=== PATIENT | female | born 1995 ===

== ENCOUNTER 2017-10-29 15:56 | Emergency (ER) | payer OTHER ==
[~2017-10-29] VITALS: Ht 167.6 cm; Wt 64.1 kg
[2017-10-29 16:05] VITALS: TEMP 36.9; Ht 167.6 cm; Wt 64.1 kg
[2017-10-29] MEDS ORDERED: IBUPROFEN 600 MG TAB PO STA (16:22)
[2017-10-29] MEDS ORDERED: ACETAMINOPHEN 500 MG TAB PO STA (16:22)
[2017-10-29] MEDS ORDERED: SPIR50TA2 PO (16:29)
[2017-10-29] MEDS ORDERED: CYCL10TA6 PO (16:29)
[2017-10-29] MEDS ORDERED: DIAZEPAM 5MG TAB PO ONE (16:30)
--- NOTE | 2017-10-29 16:54 | EMERGENCY ROOM VISIT NOTE ---
History Report prepared by Mira: Mark Reyes Under the Supervision of: Dr. Tab Reyes M.D. First contact with patient: 16:09 Chief Complaint: BACK PAIN Stated Complaint: PAIN AND MUSCLE SPASMS IN BACK, ARMS AND KNEES History of Present Illness The patient is a 22 year old [place] female with no past medical history who presents to the ED with a cc of intermittent, severe upper back and upper arm spasms beginning 8 hours ago. Pt tried taking three Flexeril, but it did not help. Positive history of these symptoms - last episode was three months ago, pain with movement, occasional alcohol use, occasional marijuana use. Negative pain when she is sitting still, recent strain, tobacco use, recent surgeries. Pt last used marijuana yesterday. LNMP was three weeks ago. Source of History: patient Onset: 8 hours ago Position: arm (upper, bilateral), back (upper) Symptom Intensity: severe Quality: cramping Timing: intermittent Modifying Factors (Worsening): movement Modifying Factors (Relieving): other (sitting still) Note: Denies: recent strain or surgeries Review of Systems See HPI for pertinent positives and negatives. A total of ten systems were reviewed and were otherwise negative. Past Medical & Surgical Medical Problems: (1) No Known Active Medical Problems Family History Patient reports no known family medical history. Social History Smoking Status: Never Smoker Housing Status: lives with roommate Occupation Status: [employer] student Current/Historical Medications Scheduled Tramadol Hcl (Ultram), 50 MG PO Q8H Scheduled PRN Cyclobenzaprine Hcl (Flexeril), 10 MG PO TID PRN for Muscle Spasms Spironolactone (Aldactone), 50 MG PO DAILY PRN for PRN Allergies Coded Allergies: Cashew (Unverified Allergy, Unknown, VOMITING, 10/29/17) Pecan (Unverified Allergy, Unknown, VOMITING, 10/29/17) Pistachio (Unverified Allergy, Unknown, VOMITING, 10/29/17) Physical Exam Vital Signs Date Time Temp Pulse Resp B/P (MAP) Pulse Ox O2 Delivery O2 Flow Rate FiO2 10/29/17 19:13 100 Room Air 10/29/17 19:13 72 20 120/68 100 Room Air 10/29/17 18:07 107 10/29/17 17:45 89 17 133/96 89 10/29/17 17:21 88 20 143/103 100 Room Air 10/29/17 16:05 36.9 113 18 148/98 98 Room Air Physical Exam GENERAL: Awake, alert, well-appearing, NAD HENT: Normocephalic, atraumatic. EYES: Normal conjunctiva. Sclera non-icteric. NECK: Supple. No nuchal rigidity. FROM. RESPIRATORY: CTAB, no rhonchi, wheezing, crackles CARDIAC: RRR, no MRG ABDOMEN: Soft, NTND, BS+ MSK: No chest wall TTP, no LE edema. Bilateral trapezius discomfort. NEURO: GCS 15, CN 2-12 intact, moves all 4s on command. No saddle anesthesia. 5/ 5 UE strength. No LE deficits. SKIN: No rash or jaundice noted. Medical Decision & Procedures ER Provider Diagnostic Interpretation: Radiology results as stated below per my review and radiologist interpretation CT ANGIOGRAPHY OF THE CHEST, PULMONARY EMBOLUS PROTOCOL CLINICAL HISTORY: Severe upper back pain and upper arm spasms. COMPARISON STUDY: No previous studies for comparison. TECHNIQUE: Following IV administration of 78 mL of Optiray-320, helical axial images of the chest were obtained utilizing the pulmonary embolus protocol. Maximal intensity projections and sagittal and coronal reformats were viewed on an independent 3D workstation. IV contrast was administered without complication. A dose lowering technique was utilized adhering to the principles of ALARA. CT DOSE: 172.26 mGy.cm FINDINGS: No pulmonary emboli are identified although the segmental and subsegmental pulmonary arteries within the lower lobes are suboptimally assessed due to respiratory motion. Size of the heart is normal. There is no thoracic aortic dissection. No enlarged axillary, mediastinal or hilar lymph nodes are present. Mild anterior mediastinal soft tissue likely reflects residual thymus. Central airways are patent. There is no consolidation to suggest pneumonia. Mild subpleural opacities favor atelectasis. There is no pneumomediastinum. Bony thorax and upper abdomen are unremarkable. IMPRESSION: 1. No pulmonary emboli identified although segmental and subsegmental pulmonary arteries within the lower lobes suboptimally assessed due to respiratory motion. 2. No acute intrathoracic findings. Electronically signed by: Suresh Bay M.D. 10/29/2017 7:44 PM Dictated Date/Time: 10/29/2017 7:37 PM Laboratory Results 10/29/17 17:25 Red Blood Count 5.01, Mean Corpuscular Volume 91.2, Mean Corpuscular Hemoglobin 31.1, Mean Corpuscular Hemoglobin Concent 34.1, Mean Platelet Volume 10.1, Neutrophils (%) (Auto) 83.0, Lymphocytes (%) (Auto) 11.6, Monocytes (%) (Auto) 3.9, Eosinophils (%) (Auto) 1.1, Basophils (%) (Auto) 0.1, Neutrophils # (Auto) 8.60, Lymphocytes # (Auto) 1.20, Monocytes # (Auto) 0.40, Eosinophils # (Auto) 0.11, Basophils # (Auto) 0.01 10/29/17 17:25 Test 10/29/17 16:42 10/29/17 17:25 Urine Color YELLOW Urine Appearance CLEAR (CLEAR) Urine pH >= 9.0 (4.5-7.5) Urine Specific [place] 1.018 (1.000-1.030) Urine Protein NEG (NEG) Urine Glucose (UA) NEG (NEG) Urine Ketones NEG (NEG) Urine Occult Blood NEG (NEG) Urine Nitrite NEG (NEG) Urine Bilirubin NEG (NEG) Urine Urobilinogen NEG (NEG) Urine Leukocyte Esterase NEG (NEG) Urine WBC (Auto) 1-5 /hpf (0-5) Urine RBC (Auto) 0-4 /hpf (0-4) Urine Hyaline Casts (Auto) 1-5 /lpf (0-5) Urine Epithelial Cells (Auto) >30 /lpf (0-5) Urine Bacteria (Auto) NEG (NEG) Urine Test NEG (NEG) White Blood Count 10.35 K/uL (4.8-10.8) Red Blood Count 5.01 M/uL (4.2-5.4) Hemoglobin 15.6 g/dL (12.0-16.0) Hematocrit 45.7 % (37-47) Mean Corpuscular Volume 91.2 fL (80-100) Mean Corpuscular Hemoglobin 31.1 pg (25-34) Mean Corpuscular Hemoglobin Concent 34.1 g/dl (32-36) Platelet Count 251 K/uL (130-400) Mean Platelet Volume 10.1 fL (7.4-10.4) Neutrophils (%) (Auto) 83.0 % Lymphocytes (%) (Auto) 11.6 % Monocytes (%) (Auto) 3.9 % Eosinophils (%) (Auto) 1.1 % Basophils (%) (Auto) 0.1 % Neutrophils # (Auto) 8.60 K/uL (1.4-6.5) Lymphocytes # (Auto) 1.20 K/uL (1.2-3.4) Monocytes # (Auto) 0.40 K/uL (0.11-0.59) Eosinophils # (Auto) 0.11 K/uL (0-0.5) Basophils # (Auto) 0.01 K/uL (0-0.2) RDW Standard Deviation 43.1 fL (36.4-46.3) RDW Coefficient of Variation 12.9 % (11.5-14.5) Immature Granulocyte % (Auto) 0.3 % Immature Granulocyte # (Auto) 0.03 K/uL (0.00-0.02) Prothrombin Time 10.6 SECONDS (9.0-12.0) Prothromb Time International Ratio 1.0 (0.9-1.1) Activated Partial Thromboplast Time 29.4 SECONDS (21.0-31.0) Partial Thromboplastin Ratio 1.1 Anion Gap 6.0 mmol/L (3-11) Est Creatinine Clear Calc Drug Dose 86.7 ml/min Estimated GFR () 98.0 Estimated GFR (Non- 84.5 BUN/Creatinine Ratio 12.1 (10-20) Calcium Level 9.3 mg/dl (8.5-10.1) Phosphorus Level 3.2 mg/dl (2.5-4.9) Magnesium Level 2.1 mg/dl (1.8-2.4) Total Bilirubin 0.6 mg/dl (0.2-1) Direct Bilirubin 0.2 mg/dl (0-0.2) Aspartate Amino Transf (AST/SGOT) 15 U/L (15-37) Alanine Aminotransferase (ALT/SGPT) 23 U/L (12-78) Alkaline Phosphatase 71 U/L (45-117) Troponin I < 0.015 ng/ml (0-0.045) Total Protein 7.7 gm/dl (6.4-8.2) Albumin 4.1 gm/dl (3.4-5.0) Lipase 79 U/L (73-393) Human Chorionic Gonadotropin, Qual NEG (NEG) Laboratory results reviewed by me Medications Administered Medications (Trade) Dose Ordered Sig/Tom Route Start Time Stop Time Status Last Admin Dose Admin Diazepam (Valium Tab) 5 mg NOW ONCE PO 10/29/17 16:30 10/29/17 16:31 DC 10/29/17 16:40 5 MG Ibuprofen (Motrin Tab) 600 mg ONE STAT PO 10/29/17 16:22 10/29/17 16:24 DC 10/29/17 16:40 600 MG Acetaminophen (Tylenol Tab) 1,000 mg NOW STAT PO 10/29/17 16:22 10/29/17 16:24 DC 10/29/17 16:40 1,000 MG Hydromorphone HCl (Dilaudid Inj) 1 mg ONE STAT IM 10/29/17 17:30 10/29/17 17:31 DC 10/29/17 17:39 1 MG Dexamethasone Sodium Phosphate (Dexamethasone Inj Pf) 10 mg NOW ONCE IM 10/29/17 17:30 10/29/17 17:31 DC 10/29/17 17:38 10 MG ECG Indication: back/shoulder pain Rate (beats per minute): 95 Rhythm: normal sinus Findings: other (Normal interval, normal axis, no STS changes or TWI) ED Course 1617: The patient was evaluated in room C08. A complete history and physical exam was performed. 1947: I reevaluated the patient. Discussed results and discharge instructions: she verbalized understanding and agreement. The patient is ready for discharge. Medical Decision The patient is a 22 year old [place] female with no past medical history who presents to the ED with a cc of intermittent, severe upper back and upper arm spasms beginning 8 hours ago. Differential diagnosis: Etiologies such as musculoskeletal, disc herniation, fracture, aortic disease, metastatic disease, cord compression, discitis, infection, renal colic, gastrointestinal, acute exacerbation of chronic back pain, sciatica, cauda equina, as well as others were entertained. Patient was seen and evaluated the bedside. Patient does complain of some severe upper back and upper arm pain that she describes as spasm-like. Patient denies any recent change in activity or exercise. Patient did recently returned from [place] after being on winter break issues at [employer]. Patient initially was given medications that she didn't have any other high risk red flag features with regard to her back pain. Patient was having persistent symptoms the patient blood work completed, EKG, troponin, and CT PE. Patient's CT PE although somewhat limited secondary to motion artifact was negative. Patient's blood work was fairly unremarkable. Patient normal white blood cell count. H&H was within normal limits. Patient had normal kidney function. Patient had negative troponin. Upon reassessment the patient' s pain was mildly improved. Patient was deemed suitable for outpatient follow- up and treatment. Patient was given strict follow-up instructions and return precautions. Patient agreeable plan of care. Patient was given strict follow-up , discharge, and return precautions. All questions were answered. Patient was deemed suitable for outpatient follow-up at this time. Patient agreed with the plan of care and was safely discharged home. Medication Reconcilliation Current Medication List: was personally reviewed by me Blood Pressure Screening Patient's blood pressure: Normal blood pressure Blood pressure disposition: Did not require urgent referral Impression Primary Impression: Muscle spasm Scribe Attestation The scribe's documentation has been prepared under my direction and personally reviewed by me in its entirety. I confirm that the note above accurately reflects all work, treatment, procedures, and medical decision making performed by me. Departure Information Dispostion Home / Self-Care Prescriptions Tramadol Hcl (ULTRAM) 50 Mg Tab 50 MG PO Q8H, #15 TAB PRN PAIN Prov: Tab Reyes M.D. 10/29/17 Referrals No Doctor, Assigned (PCP) Forms HOME CARE DOCUMENTATION FORM, IMPORTANT VISIT INFORMATION Patient Instructions ED Spasm Esophageal, My [facility] Additional Instructions Please return to the emergency department if you have worsening or recurrent symptoms not amenable to at-home treatment. Please call for a follow-up appointment with her primary care physician. Please take your medications as prescribed. If you have other concerns and/or complaints please feel free to also call your primary care physician's office or return the ED for further evaluation, management, and treatment. You received narcotic or benzodiazepene medication while in the emergency room today. This is an addictive medication that may cause drowziness as well as constipation. Do not drive, operate heavy machinery, or drink alcohol under the influence of this medication. Take your medications as prescribed. If taking an antibiotic consider taking a probiotic and/or eating yogurt, but at the least, please take with food as it can cause upset stomach. If culture results are not available at discharge, if they are positive for concern of infection, you will be informed of the results as soon as they are available. If you were seen between 11pm and 7AM all radiology reads will be re-read by our in house staff. If any major discrepancies are discovered, you will be notified. You have been examined and treated today on an emergency basis only. This is not a substitute for, or an effort to provide, complete comprehensive medical care. It is impossible to recognize and treat all injuries or illnesses in a single emergency department visit. It is therefore important that you follow up closely with [facility], your PCP, and/or your specialist(s). Call as soon as possible for an appointment. Thank you for your time and consideration. I look forward to speaking with you again soon. Please don't hesitate to call us if you have any questions.
[2017-10-29] MEDS ORDERED: DEXAMETHASONE **PF** INJ 10 MG/ML VIAL IM ONE (17:30)
[2017-10-29] MEDS ORDERED: HYDROmorphone INJ 1 MG/ML SYR IM STA (17:30)
[2017-10-29] MEDS ORDERED: ONDANSETRON INJ 2 MG/ML 2 ML VIAL IV STA (18:27)
[2017-10-29] MEDS ORDERED: OPTIRAY 320 IV PRN (18:45)
[2017-10-29 18:46] LABS: BASO % 0.1 %; BASO ABS # 0.01 K/uL (0-0.2); EOS % 1.1 %; EOS ABS # 0.11 K/uL (0-0.5); HEMATOCRIT 45.7 % (37-47); HEMOGLOBIN 15.6 g/dL (12.0-16.0); IG# 0.03 K/uL (0.00-0.02); LYMPH % 11.6 %; MEAN CELL VOLUME 91.2 fL (80-100); MEAN CORPUSCULAR HEMOGLOBIN 31.1 pg (25-34); MEAN CORPUSCULAR HGB CONC 34.1 g/dl (32-36); MEAN PLATELET VOLUME 10.1 fL (7.4-10.4); MONO % 3.9 %; PLATELET COUNT 251 K/uL (130-400); PTT PATIENT 29.4 SECONDS (21.0-31.0); RED CELL DISTRIBUTION WIDTH CV 12.9 % (11.5-14.5); RED CELL DISTRIBUTION WIDTH SD 43.1 fL (36.4-46.3); WHITE BLOOD COUNT 10.35 K/uL (4.8-10.8)
[2017-10-29 18:56] LABS: ALBUMIN 4.1 gm/dl (3.4-5.0); ALT/SGPT 23 U/L (12-78); AST/SGOT 15 U/L (15-37); BLOOD UREA NITROGEN 12 mg/dl (7-18); CALCIUM 9.3 mg/dl (8.5-10.1); CARBON DIOXIDE 28 mmol/L (21-32); CREATININE 0.96 mg/dl (0.60-1.20); GLUCOSE 93 mg/dl (70-99); LIPASE 79 U/L (73-393); POTASSIUM 3.7 mmol/L (3.5-5.1); SODIUM 136 mmol/L (136-145)
[2017-10-29 19:04] LABS: ALKALINE PHOSPHATASE 71 U/L (45-117); PHOSPHORUS 3.2 mg/dl (2.5-4.9); TOTAL PROTEIN 7.7 gm/dl (6.4-8.2)
[2017-10-29 19:13] VITALS: O2SAT 100
--- NOTE | 2017-10-29 19:45 | DIAGNOSTIC IMAGING REPORT ---
CT ANGIOGRAPHY OF THE CHEST, PULMONARY EMBOLUS PROTOCOL CLINICAL HISTORY: Severe upper back pain and upper arm spasms. COMPARISON STUDY: No previous studies for comparison. TECHNIQUE: Following IV administration of 78 mL of Optiray-320, helical axial images of the chest were obtained utilizing the pulmonary embolus protocol. Maximal intensity projections and sagittal and coronal reformats were viewed on an independent 3D workstation. IV contrast was administered without complication. A dose lowering technique was utilized adhering to the principles of ALARA. CT DOSE: 172.26 mGy.cm FINDINGS: No pulmonary emboli are identified although the segmental and subsegmental pulmonary arteries within the lower lobes are suboptimally assessed due to respiratory motion. Size of the heart is normal. There is no thoracic aortic dissection. No enlarged axillary, mediastinal or hilar lymph nodes are present. Mild anterior mediastinal soft tissue likely reflects residual thymus. Central airways are patent. There is no consolidation to suggest pneumonia. Mild subpleural opacities favor atelectasis. There is no pneumomediastinum. Bony thorax and upper abdomen are unremarkable. IMPRESSION: 1. No pulmonary emboli identified although segmental and subsegmental pulmonary arteries within the lower lobes suboptimally assessed due to respiratory motion. 2. No acute intrathoracic findings. Electronically signed by: Suresh Bay M.D. 10/29/2017 7:44 PM Dictated Date/Time: 10/29/2017 7:37 PM
[2017-10-29] MEDS ORDERED: TRAM-453 PO (20:00)
[2017-10-29] MEDS ORDERED: TRAMADOL HCL 50 MG HOME PACK PO ONE (20:15)
[2017-10-29 20:43] VITALS: BP 112/72; PULSE 73; O2SAT 98
== END 2017-10-29 20:44 | disposition home or self-care (01) ==
LOC: C.EDB 15:59 → C.EDC 20:44
DX: M62.830 Muscle spasm of back (principal); M62.838 Other muscle spasm; F12.10 Cannabis abuse, uncomplicated